=== PATIENT | male | born 1955 | race Caucasian/White ===

== ENCOUNTER 2018-05-27 00:35 | Emergency (ER) | payer BC ==
[2018-05-27] MEDS ORDERED: Sodium Chloride 0.9% 10 ML Syringe FLUSH PRN (00:49)
[2018-05-27] MEDS ORDERED: Sodium Chloride 0.9% 1,000 ML IV ONE (00:49)
--- NOTE | 2018-05-27 01:02 | EDM.PDOC ---
ED HPI GENERAL MEDICAL PROBLEM - General Chief Complaint: General Stated Complaint: spasms Time Seen by Provider: 05/27/18 00:49 Source of Information: Reports: Patient, Family History Limitations: Reports: No Limitations - History of Present Illness INITIAL COMMENTS - FREE TEXT/NARRATIVE: Patient presents this evening with complaints of muscular spasms and cramps. He reports he started about 2-3 days ago in his hands and feet with symptoms that he states to be like charley horses. He does state that he's had long periods of time with with mild cramping but nothing to this extent. Family is here with him reports that had to help him get off the floor due to severe pain. He denies any medical history and does not take any current medications. He does work as a [employer] and has been WORKING in the [employer] over the last few days. Medical history includes hernia repair. Denies headache, chest pain, shortness of breath, chest pressure, nausea or vomiting, blood in urine or stool. Denies back or neck pain. Does say that he has chills couple of days ago. Denies fever or nocturnal diaphoresis. Family also reports that a couple days ago he was working in a bin full of moldy corn. No exposure to mouse droppings. Onset: Gradual Onset Date: 05/24/18 Duration: Getting Worse Quality: Reports: Ache, Sharp Severity: Severe Associated Symptoms: Reports: No Other Symptoms Left Back Pain Score (Numeric/FACES): 5 - Related Data Allergies Allergy/AdvReac Type Severity Reaction Status Date / Time No Known Allergies Allergy Verified 05/27/18 01:02 Home Meds: Home Meds Aspirin 81 mg PO DAILY 05/27/18 [History] ED ROS GENERAL - Review of Systems Review Of Systems: See Below Constitutional: Reports: No Symptoms HEENT: Reports: No Symptoms Respiratory: Reports: No Symptoms Cardiovascular: Reports: No Symptoms Endocrine: Reports: No Symptoms GI/Abdominal: Reports: No Symptoms : Reports: No Symptoms Musculoskeletal: Reports: Other (general cramping) Skin: Reports: No Symptoms Neurological: Reports: No Symptoms Psychiatric: Reports: No Symptoms Hematologic/Lymphatic: Reports: No Symptoms ED EXAM, GENERAL - Physical Exam Exam: See Below Exam Limited By: No Limitations General Appearance: Alert, WD/WN, Mild Distress Eye Exam: Bilateral Eye: EOMI, Normal Inspection, PERRL Ears: Normal TMs Nose: Normal Inspection, Normal Mucosa, No Blood Throat/Mouth: Normal Inspection, Normal Lips, Normal Teeth, Normal Gums, Normal Oropharynx, Normal Voice, No Airway Compromise Head: Atraumatic, Normocephalic Neck: Normal Inspection, Supple, Non-Tender, Full Range of Motion Respiratory/Chest: No Respiratory Distress, Lungs Clear, Normal Breath Sounds, No Accessory Muscle Use, Chest Non-Tender Cardiovascular: Normal Peripheral Pulses, Regular Rate, Rhythm, No Edema, No Gallop, No JVD, No Murmur, No Rub Peripheral Pulses: 2+: Radial (L), Radial (R), Posterior Tibial (L), Posterior Tibial (R), Dorsalis Pedis (L), Dorsalis Pedis (R) GI/Abdominal: Normal Bowel Sounds, Soft, Non-Tender, No Organomegaly, No Distention, No Abnormal Bruit, No Mass Back Exam: Normal Inspection, Full Range of Motion, NT Extremities: Normal Inspection, Normal Range of Motion, Non-Tender, Normal Capillary Refill, No Pedal Edema Neurological: Alert, Oriented, CN II-XII Intact, Normal Cognition, Normal Gait, Normal Reflexes, No Motor/Sensory Deficits Psychiatric: Normal Affect, Normal Mood Skin Exam: Warm, Dry, Intact, Normal Color, No Rash Course - Vital Signs Last Recorded V/S: Last Vital Signs Temp 37.1 C 05/27/18 00:42 Pulse 79 05/27/18 00:42 Resp 16 05/27/18 00:42 BP 127/88 05/27/18 00:42 Pulse Ox 95 05/27/18 00:42 - Orders/Labs/Meds Labs: Laboratory Tests 05/27/18 05/27/18 Range/Units 00:55 00:55 WBC 8.8 (4.0-10.0) x10^3/uL RBC 5.22 (4.5-6.0) x10^6/uL Hgb 15.3 (14.0-18.0) g/dL Hct 44.1 (40.0-52.0) % MCV 84.5 (78.0-93.0) fL MCH 29.3 (26.0-32.0) pg MCHC 34.7 (32.0-36.0) g/dL RDW Coeff of Harlan 13.4 (10.0-15.0) % Plt Count 186 (130-400) x10^3/uL Neut % (Auto) 73.2 (50.0-80.0) % Lymph % (Auto) 14.3 L (25.0-50.0) % [place] % (Auto) 10.1 (2.0-11.0) % Eos % (Auto) 1.9 (0.0-4.0) % Baso % (Auto) 0.5 (0.2-1.2) % Sodium 138 (136-145) mmol/L Potassium 3.9 (3.5-5.1) mmol/L Chloride 105 (98-107) mmol/L Carbon Dioxide 23 (21-32) mmol/L Anion Gap 13.9 (10-20) mmol/L BUN 17 (7-18) mg/dL Creatinine 1.6 H (0.70-1.30) mg/dL Est Cr Clr Drug Dosing 50.06 mL/min Estimated GFR (MDRD) 44 Glucose 155 H (74-106) mg/dL Calcium 9.0 (8.5-10.1) mg/dL Corrected Calcium 9.16 (8.5-10.1) mg/dL Magnesium 2.3 (1.8-2.4) mg/dL Total Bilirubin 0.8 (0.2-1.0) mg/dL AST 28 (15-37) U/L ALT 36 (16-63) U/L Alkaline Phosphatase 60 (46-116) U/L Creatine Kinase 260 (39-308) U/L C-Reactive Protein 6.5 H (<=0.9) mg/dL Total Protein 8.0 (6.4-8.2) g/dL Albumin 3.8 (3.4-5.0) g/dL Globulin 4.2 Albumin/Globulin Ratio 0.90 TSH, Ultra Sensitive 4.950 H (0.358-3.74) uIU/mL Meds: Medications Discontinued Medications Generic Name Dose Route Start Last Admin Trade Name Freq PRN Reason Stop Dose Admin Cyclobenzaprine HCl 1 packet 05/27/18 01:59 05/27/18 02:04 Take Home: Cyclobenzaprine 10 Mg, 4 Tab Pack PO 05/27/18 02:00 1 packet ONETIME ONE Administration Sodium Chloride 1,000 mls @ 999 mls/hr 05/27/18 00:49 05/27/18 00:58 Normal Saline IV 05/27/18 01:49 999 mls/hr ONETIME ONE Administration Lorazepam 1 mg 05/27/18 01:03 05/27/18 01:10 Ativan IVPUSH 05/27/18 01:04 1 mg ONETIME ONE Administration Sodium Chloride 10 ml 05/27/18 00:49 Saline Flush FLUSH ASDIRECTED PRN Keep Vein Open Departure - Departure Time of Disposition: 02:00 Disposition: Home, Self-Care 01 Condition: Good Clinical Impression: Muscle spasm, Cramps, muscle, general - Discharge Information *PRESCRIPTION DRUG MONITORING PROGRAM REVIEWED*: Not Applicable *COPY OF PRESCRIPTION DRUG MONITORING REPORT IN PATIENT SONJA: Not Applicable Instructions: Muscle Cramps and Spasms, [id number], Cyclobenzaprine tablets Referrals: PCP,Unobtain [Primary Care Provider] - Forms: ED Department Discharge Additional Instructions: Please use the take home pack of Flexeril that we provided for any additional cramping you experience. Do not drive until you know how they effect you. Establish care with a primary provider to investigate the cause of these chronic cramps/spasms to your hands and feet. You may want to have your B and D vitamin levels checked. Stay well hydrated while in the field. If you have any further questions or concerns, please call the hospital. - Problem List & Annotations (1) Cramps, muscle, general SNOMED Code(s): 23279275 Code(s): R25.2 - CRAMP AND SPASM Status: Acute Priority: Low (2) Muscle spasm SNOMED Code(s): 85142959 Code(s): M62.838 - OTHER MUSCLE SPASM Status: Acute Priority: Low - Problem List Review Problem List Initiated/Reviewed/Updated: Yes - Assessment/Plan Assessment:: muscle cramps and spasms, general Plan: Please use the take home pack of Flexeril that we provided for any additional cramping you experience. Do not drive until you know how they effect you. Establish care with a primary provider to investigate the cause of these chronic cramps/spasms to your hands and feet. You may want to have your B and D vitamin levels checked. Stay well hydrated while in the field. If you have any further questions or concerns, please call the hospital.
[2018-05-27] MEDS ORDERED: LORazepam 2 MG/ML SDV IVPUSH ONE (01:03)
[2018-05-27 01:36] LABS: ANION GAP 13.9 mmol/L (10-20)
[2018-05-27] MEDS ORDERED: Take Home: Cyclobenzaprine 10 MG Tab, 4 Tab Pack PO ONE (01:59)
== END 2018-05-27 02:20 | disposition home or self-care (01) ==
LOC: VM.ED 00:35
DX: M62.838 Other muscle spasm (principal); Z79.82 Long term (current) use of aspirin
CPT/HCPCS: 80053; 82550; 83735; 84443; 85025; 86140; 96361; 96374; 99283; A9270; J2060; J7030; 36415